=== PATIENT | female | born 1995 | race Caucasian/White ===

== ENCOUNTER 2020-07-12 15:13 | Emergency (ER) | payer BC ==
[~2020-07-12] VITALS: Ht 177.8 cm; Wt 72.7 kg
[2020-07-12 15:18] VITALS: TEMP 98.2
[2020-07-12] MEDS ORDERED: VYVANSE10 MG (15:45)
[2020-07-12 16:13] VITALS: BP 122/70; PULSE 60
== END 2020-07-12 16:15 | disposition home or self-care (01) ==
LOC: COL.ER 15:13
DX: S60.021A Contusion of right index finger without damage to nail, initial encounter (principal); F17.200 Nicotine dependence, unspecified, uncomplicated; W23.0XXA Caught, crushed, jammed, or pinched between moving objects, initial encounter